=== PATIENT | male | born 1975 | race Caucasian/White ===

== ENCOUNTER 2020-02-29 16:36 | Emergency (ER) | payer OTHER ==
--- NOTE | 2020-02-29 16:48 | ER Document Report ---
ED Medical Screen (RME) - General Chief Complaint: Medical Clearance Stated Complaint: MEDICAL CLEARANCE Time Seen by Provider: 02/29/20 16:44 Mode of Arrival: Ambulatory Information source: Patient Notes: 45-year-old male presented to ED for clearance for detox from alcohol. He states he drank probably a physical more last night. He states he has not had any today. He states he does chew tobacco does not use any drugs and does not smoke. 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 He is alert oriented respirations regular nonlabored speaking in full sentences. I have greeted and performed a rapid initial assessment of this patient. A comprehensive ED assessment and evaluation of the patient, analysis of test results and completion of medical decision making process will be conducted by an additional ED providers. - Related Data Allergies/Adverse Reactions: myacins Allergy (Uncoded 02/29/20 16:44)
[2020-02-29] MEDS: NORMAL SALINE 1000 ML 1,000 ML IV PRN ×2 (17:45→18:39)
[2020-02-29 17:48] LABS: HEMOGLOBIN 15.1 g/dL (13.5-17.0); MEAN CORPUSCULAR HEMOGLOBIN 33.3 pg (27.0-33.4); MEAN CORPUSCULAR HGB CONC 35.1 g/dL (32.0-36.0); MEAN CORPUSCULAR VOLUME 95 fl (80-97); PLATELET COUNT 144 10^3/uL (150-450); RED BLOOD COUNT 4.53 10^6/uL (4.35-5.55); RED CELL DISTRIBUTION WIDTH 12.7 % (11.5-14.0); WHITE BLOOD COUNT 4.4 10^3/uL (4.0-10.5)
--- NOTE | 2020-02-29 17:50 | ER Document Report ---
ED General - General Chief Complaint: Medical Clearance Stated Complaint: MEDICAL CLEARANCE Time Seen by Provider: 02/29/20 16:44 Mode of Arrival: Ambulatory Notes: 45-year-old male presents emergency department sent over by [facility] for medical clearance. Patient states he drinks 1/5 of liquor every 2 days and would like help quitting drinking. Last time he drank was last evening, states he drank approximately 1/5 of liquor. States that he wants to quit drinking because he lost his and kids in a divorce that became official this weekend. States he went to [facility] and was discharged on Wednesday when he was seeking help for quitting drinking. States he was prescribed Zofran and Ativan. States he took a dose of each today to help with his withdrawal symptoms. Describes the symptoms as feeling shaky but has not yet actually started shaking. Admits a history of going through withdrawal, denies a history of seizures with withdrawal. Admits a chronic cough productive of phlegm, states that he has had this for months and it is unchanged. Denies any fever, denies any contact with known novel coronavirus patients. Denies suicidal ideation - Related Data Allergies/Adverse Reactions: myacins Allergy (Uncoded 02/29/20 16:44) Past Medical History - General Information source: Patient - Social History Smoking Status: Never Smoker Chew tobacco use (# tins/day): Yes Frequency of alcohol use: Heavy Drug Abuse: None Family History: None Patient has suicidal ideation: No Patient has homicidal ideation: No Review of Systems - Review of Systems Constitutional: See HPI - Generally feels shaky. EENT: No symptoms reported Cardiovascular: No symptoms reported Respiratory: See HPI, Cough Neurological/Psychological: See HPI - Heavy drinking. -: Yes All other systems reviewed and negative Physical Exam - Vital signs Vitals: Temp Pulse Resp BP Pulse Ox 98.3 F 107 H 16 131/87 H 97 02/29/20 16:44 02/29/20 16:44 02/29/20 16:44 02/29/20 16:44 02/29/20 16:44 Interpretation: Tachycardic - Notes Notes: GENERAL: Alert, interacts well. No acute distress. HEAD: Normocephalic, atraumatic EYES: Pupils equal, round and reactive to light, extraocular movements intact. ENT: Oral mucosa moist, tongue midline. NECK: Full range of motion, supple, trachea midline. LUNGS: Clear to auscultation bilaterally, no wheezes, rales or rhonchi, no respiratory distress. HEART: Regular rate and rhythm, no murmurs, gallops, rubs. ABDOMEN: Soft, nontender, nondistended, bowel sounds present in all 4 quadrants. EXTREMITIES: Moves all 4 extremities spontaneously, no edema, radial and dorsalis pedis pulses 2/4 bilaterally. No cyanosis. NEUROLOGICAL: Alert and oriented x3, normal speech, no facial droop, biceps and patellar DTRs 2+ bilaterally. No tremor. PSYCH: Normal mood, normal affect. SKIN: Warm, Dry, normal turgor, no rashes or lesions noted. Course - Re-evaluation Re-evalutation: 02/29/20 18:32 CBC shows very mild thrombocytopenia at 144, CMP shows very mild hypokalemia at 3.4, this is repleted by mouth, AST and ALT both elevated consistent with heavy alcohol use, salicylates and acetaminophen are negative, serum alcohol is 256. Using a clearance rate of 20/h patient will be ready to go to [place] [facility] at 8 PM this evening. Patient is not suicidal, he does not meet involuntary commitment criteria. He is already been given medications from another hospital to help him through withdrawal in the form of Ativan and Zofran. There is no indication for admission at this time. - Vital Signs Vital signs: Temp Pulse Resp BP Pulse Ox 98.3 F 107 H 16 131/87 H 97 02/29/20 16:44 02/29/20 16:44 02/29/20 16:44 02/29/20 16:44 02/29/20 16:44 - Laboratory Result Diagrams: 02/29/20 17:15 02/29/20 17:15 Laboratory results interpreted by me: 02/29/20 02/29/20 17:15 17:15 Plt Count 144 L Monocytes % (Manual) 14 H Potassium 3.4 L Carbon Dioxide 33 H BUN 5 L AST 340 H ALT 281 H Salicylates < 1.0 L Acetaminophen < 10 L - EKG Interpretation by Me Additional EKG results interpreted by me: 02/29/20 18:32 EKG shows sinus rhythm at a rate of 95, normal axis, normal intervals, no ST segment elevations or depressions, T wave flattening in lead III, no T wave inversions, rapid R wave progression per my interpretation. Discharge - Discharge Clinical Impression: Alcohol abuse Condition: Stable Disposition: OTHER Additional Instructions: Please go directly to [place] [facility] if you wish to have more help quitting drinking.
[2020-02-29 17:59] LABS: ALBUMIN 4.4 g/dL (3.5-5.0); ALCOHOL 256 mg/dL (NONE DETECTED); ALKALINE PHOSPHATASE 89 U/L (38-126); ANION GAP 8 (5-19); ASPARTATE AMINO TRANSFERASE 340 U/L (17-59); BILIRUBIN,DIRECT 0.3 mg/dL (0.0-0.4); BILIRUBIN,TOTAL 0.9 mg/dL (0.2-1.3); BLOOD UREA NITROGEN 5 mg/dL (7-20); CALCIUM 9.1 mg/dL (8.4-10.2); CARBON DIOXIDE 33 mmol/L (22-30); CHLORIDE 103 mmol/L (98-107); GLUCOSE 98 mg/dL (75-110); POTASSIUM 3.4 mmol/L (3.6-5.0)
[2020-02-29 18:00] LABS: ACETAMINOPHEN < 10 ug/mL (10-30); SALICYLATE < 1.0 mg/dL (2.0-20.0)
[2020-02-29 18:17] LABS: ABSOLUTE LYMPHOCYTES# (MANUAL) 0.8 10^3/uL (0.5-4.7); ABSOLUTE MONOCYTES # (MANUAL) 0.6 10^3/uL (0.1-1.4); BASOPHILS % (MANUAL) 0 % (0-2); EOSINOPHILS % (MANUAL) 3 % (0-6); LYMPHOCYTES % (MANUAL) 18 % (13-45); MONOCYTES % (MANUAL) 14 % (3-13); SEGMENTED NEUTROPHILS % (MAN) 65 % (42-78); TOTAL CELLS COUNTED 100
[2020-02-29 18:18] LABS: PLATELET COMMENT ADEQUATE; RBC MORPHOLOGY COMMENT NORMO-CYTIC/CHROMIC
[2020-02-29] MEDS ORDERED: POTASSIUM CHLORIDE 10 MEQ TABLET.ER PO ONE (18:30)
[2020-02-29 21:58] VITALS: BP 126/78
--- NOTE | 2020-03-01 16:49 | EKG REPORT ---
SEVERITY:- NORMAL ECG - SINUS RHYTHM : Confirmed by: Joey Hernadez 01-Mar-2020 16:47:42
== END 2020-02-29 22:20 | disposition other institution (70) ==
LOC: ER 16:36
DX: F10.10 Alcohol abuse, uncomplicated (principal); Y90.8 Blood alcohol level of 240 mg/100 ml or more; D69.6 Thrombocytopenia, unspecified; E87.6 Hypokalemia; R05 Cough; R00.0 Tachycardia, unspecified; Z63.5 Disruption of family by separation and divorce; Z72.0 Tobacco use; Z88.1 Allergy status to other antibiotic agents
CPT/HCPCS: 93005; 99285; 96360; 96361; 36415; 80307 ×3; 85025; 80053; 93010; J7030